=== PATIENT | female | born 1995 | race Caucasian/White ===

== ENCOUNTER 2016-12-25 18:59 | Emergency (ER) | payer OTHER ==
[2016-12-25 19:26] VITALS: BP 120/70; PULSE 72; TEMP 98; BMI 17.9
--- NOTE | 2016-12-25 20:13 | PDOC ---
History of Present Illness - History of Present Illness Initial Comments: 12/25/16 20:24 Patient is a 21 year old female with significant medical hx of dysplastic cervical cells s/p LEEP procedure, asthma and migraines who is presenting to the ED with three months of intermittent pelvic pain. Patient reports her pain is chronic and she came in today because it has recently gotten worse. Patient' s LNMP: 12/06/16; she states that her menses only lasted two days this month when it usually lasts seven. She is unsure if she is . Denies fever, chills, dysuria, nausea, vomiting, diarrhea. Denies past pregnancies. Mule Tender: Nikunj Jaimes MD <Mona Shultz - Last Filed: 12/25/16 20:24> <Ruth Merchant - Last Filed: 12/25/16 21:50> - General Chief Complaint: Pain Stated Complaint: DIZZINESS Time Seen by Provider: 12/25/16 19:49 Past History <Mona Shultz - Last Filed: 12/25/16 20:24> - Past Medical History Asthma: Yes Cancer: Yes (cervical cancer) - Immunization History Immunization Up to Date: Yes - Psycho/Social/Smoking Cessation Hx Anxiety: No Suicidal Ideation: No Smoking Status: No Smoking History: Current some day smoker Number of Cigarettes Smoked Daily: 0 Information on smoking cessation initiated: No Hx Alcohol Use: No Drug/Substance Use Hx: No Substance Use Type: None <Ruth Merchant - Last Filed: 12/25/16 21:50> - Past Medical History Allergies/Adverse Reactions: Allergies Allergy/AdvReac Type Severity Reaction Status Date / Time SEAFOOD Allergy Rash Uncoded 12/25/16 19:22 Home Medications: Ambulatory Orders Gabapentin [Neurontin] 800 mg PO DAILY 12/25/16 Review of Systems - Review of Systems Comments:: 12/25/16 20:30 CONSTITUTIONAL: Absent: fever, chills, diaphoresis, generalized weakness, malaise, loss of appetite HEENT: Absent: rhinorrhea, nasal congestion, throat pain, throat swelling, difficulty swallowing, mouth swelling, ear pain, eye pain, visual changes CARDIOVASCULAR: Absent: chest pain, syncope, palpitations, irregular heart rate, lightheadedness , peripheral edema RESPIRATORY: Absent: cough, shortness of breath, dyspnea with exertion, orthopnea, wheezing, stridor, hemoptysis GASTROINTESTINAL: Present: intermittent pelvic pain Absent: abdominal distension, nausea, vomiting, diarrhea, constipation, melena, hematochezia GENITOURINARY: Absent: dysuria, frequency, urgency, hesitancy, hematuria, flank pain, genital pain MUSCULOSKELETAL: Absent: myalgia, arthralgia, joint swelling SKIN: Absent: rash, itching, pallor HEMATOLOGIC/IMMUNOLOGIC: Absent: easy bleeding, easy bruising, lymphadenopathy, frequent infections ENDOCRINE: Absent: unexplained weight gain, unexplained weight loss, heat intolerance, cold intolerance NEUROLOGIC: Absent: headache, focal weakness or paresthesia, dizziness, unsteady gait, seizure, mental status changes, bladder or bowel incontinence. PSYCHIATRIC: Absent: anxiety, depression, suicidal or homicidal ideation, hallucinations <Mona Shultz - Last Filed: 12/25/16 20:24> *Physical Exam - Vital Signs Last Vital Signs Temp Pulse Resp BP Pulse Ox 98.0 F 72 14 120/70 100 12/25/16 19:23 12/25/16 19:23 12/25/16 19:23 12/25/16 19:23 12/25/16 19:23 - Physical Exam Comments: 12/25/16 20:31 GENERAL: Well developed, well nourished. Awake and alert. No acute distress. HEENT: Normocephalic, atraumatic. PERRLA, EOMI. No conjunctival pallor. Sclera are non- icteric. Moist mucous membranes. Oropharynx is clear. NECK: Supple. Full ROM. No JVD. Carotid pulses 2+ and symmetric, without bruits. No thyromegaly. No lymphadenopathy. CARDIOVASCULAR: Regular rate and rhythm. No murmurs, rubs, or gallops. Distal pulses are 2+ and symmetric. PULMONARY: No evidence of respiratory distress. Lungs clear to auscultation bilaterally. No wheezing, rales or rhonchi. ABDOMINAL: Soft. Non-tender. Non-distended. No rebound or guarding. No organomegaly. Normoactive bowel sounds. MUSCULOSKELETAL: Normal range of motion at all joints. No bony deformities or tenderness. No CVA tenderness. EXTREMITIES: No cyanosis. No clubbing. No edema. No calf tenderness. SKIN: Warm and dry. Normal capillary refill. No rashes. No jaundice. NEUROLOGICAL: Alert, awake, appropriate. Cranial nerves 2-12 intact. Normal speech. Gait is normal without ataxia. PSYCHIATRIC: Cooperative. Good eye contact. Appropriate mood and affect. <Mona Shultz - Last Filed: 12/25/16 20:24> - Vital Signs Last Vital Signs Temp Pulse Resp BP Pulse Ox 98.0 F 72 14 120/70 100 12/25/16 19:23 12/25/16 19:23 12/25/16 19:23 12/25/16 19:23 12/25/16 19:23 <Ruth Merchant - Last Filed: 12/25/16 21:50> ED Treatment Course - LABORATORY CBC & Chemistry Diagram: 12/25/16 19:50 12/25/16 19:50 <Ruth Merchant - Last Filed: 12/25/16 21:50> *DC/Admit/Observation/Transfer - Attestations Scribe Attestion: 12/25/16 20:32 Documentation prepared by Mona Shultz, acting as medical claims representative for Ruth Merchant MD. <Mona Shultz - Last Filed: 12/25/16 20:24> <Ruth Merchant - Last Filed: 12/25/16 21:50> Diagnosis at time of Disposition: Abdominal pain Qualifiers: Abdominal location: generalized Qualified Code(s): R10.84 - Generalized abdominal pain - Discharge Dispostion Disposition: HOME Condition at time of disposition: Stable - Patient Instructions Printed Discharge Instructions: DI for Abdominal Pain-Adult Additional Instructions: please follow up with your regular physician
[2016-12-25 20:53] LABS: BASOPHIL 0.8 % (0-2.0); EOSINOPHIL 2.5 % (0-4.5); MCH 26.4 pg (25.7-33.7); MCHC 33.2 g/dl (32.0-36.0); MEAN CELL VOLUME 79.3 fl (80-96); MEAN PLT VOLUME 7.6 fl (7.5-11.1); PLATELET COUNT 319 K/MM3 (134-434); RDW 13.6 % (11.6-15.6); WHITE BLOOD COUNT 7.4 K/mm3 (4.0-10.0)
[2016-12-25 20:54] LABS: URINE APPEARANCE CLEAR; URINE BILIRUBIN NEGATIVE (NEGATIVE); URINE COLOR LTYELLOW; URINE GLUCOSE (UA) NEGATIVE (NEGATIVE); URINE KETONE NEGATIVE (NEGATIVE); URINE LEUK ESTERASE NEGATIVE (NEGATIVE); URINE NITRITE NEGATIVE (NEGATIVE); URINE PROTEIN NEGATIVE (NEGATIVE); URINE UROBILINOGEN 2.0 E.U/dl E.U./dl (0.2-1.0)
[2016-12-25 20:56] LABS: URINE BLOOD 1+ (NEGATIVE)
[2016-12-25 20:57] LABS: URINE MUCUS RARE; URINE RBC 6 /hpf (0-3); URINE WBC <1 /hpf (3-5)
[2016-12-25 21:44] LABS: ALBUMIN 3.8 g/dl (3.4-5.0); ALK PHOS 81 U/L (45-117); ANION GAP 9 (8-16); BILIRUBIN,TOTAL 0.5 mg/dL (0.2-1.0); CO2 22 mmol/L (21-32); CREATININE 0.6 mg/dL (0.55-1.02); GLUCOSE,RANDOM 81 mg/dL (74-106); SGOT/AST 16 U/L (15-37); SGPT/ALT 18 U/L (12-78); TOT PROT 7.1 g/dl (6.4-8.2)
== END 2016-12-25 22:17 | disposition home or self-care (01) ==
LOC: JER 18:59
DX: R10.2 Pelvic and perineal pain (principal); G89.29 Other chronic pain; J45.909 Unspecified asthma, uncomplicated; Z85.41 Personal history of malignant neoplasm of cervix uteri
CPT/HCPCS: 36415; 80053; 81003; 81015; 84703; 85025; 99281-25